=== PATIENT | female | born 1955 | race Caucasian/White ===

== ENCOUNTER 2016-12-19 08:57 | Emergency (ER) | payer BC ==
[2016-12-19 09:06] VITALS: BP 140/98
--- NOTE | 2016-12-19 09:22 | UC ---
Allergic Reaction HPI - HPI Summary HPI Summary: allergic reaction x 1 day facial swelling and itchy face , swollen lips and swelling eyelids no wheezing , no sob , no throat swelling not sure what caused the reaction, - History of Current Complaint Chief Complaint: UCAllergicReaction Stated Complaint: ALLERGIC REACTION Time Seen by Provider: 12/19/16 09:00 Hx Obtained From: Patient Onset/Duration: Gradual Onset, Lasting Days - 1, Still Present Severity Initially: Moderate Severity Currently: Moderate Location: Discrete @ - face , lips Character: Swelling - face, Hives - face Alleviating Factor(s): Nothing Associated Signs And Symptoms: Positive: Rash - face. Negative: Abdominal Pain , Chest Pain, Cough Wheezing, Diaphoresis, Difficulty Breathing, Hoarseness, Lightheadedness, Nausea, Syncope, Throat Tightening, Vomiting - Allergies/Home Medications Allergies/Adverse Reactions: Allergies Allergy/AdvReac Type Severity Reaction Status Date / Time Bee Venom Allergy Anaphylatic Verified 12/19/16 08:59 Shock Home Medications: Home Medications Hydrochlorothiazide TAB* [Hydrodiuril TAB*] 1 tab DAILY 12/19/16 [History Confirmed 12/19/16] Propranolol TAB* [Inderal TAB*] 1 tab DAILY 12/19/16 [History Confirmed 12/19/16 ] Venlafaxine ER (NF) [Effexor ER (NF)] 1 tab DAILY 12/19/16 [History Confirmed ] busPIRone TAB* [Buspar TAB*] 5 mg PO BID 12/19/16 [History Confirmed 12/19/16] PMH/Surg Hx/FS Hx/Imm Hx Neurological History: Migraine Psychological History: Anxiety, Depression - Surgical History Surgical History: Yes Surgery Procedure, Year, and Place: Appendix - Family History Known Family History: Negative: Diabetes - Social History Alcohol Use: Rare Substance Use Type: None Smoking Status (MU): Never Smoked Tobacco Review of Systems Constitutional: Negative Skin: Rash Eyes: Negative ENT: Negative Respiratory: Negative Cardiovascular: Negative Gastrointestinal: Negative Genitourinary: Negative Neurovascular: Negative Musculoskeletal: Negative Psychological: Anxious All Other Systems Reviewed And Are Negative: Yes Physical Exam Triage Information Reviewed: Yes Appearance: Well-Appearing, No Pain Distress, Well-Nourished Vital Signs: Initial Vital Signs Temp 97.8 F 12/19/16 09:00 Pulse 53 12/19/16 09:00 Resp 20 12/19/16 09:00 BP 140/98 12/19/16 09:00 Pulse Ox 100 12/19/16 09:00 Vital Signs Reviewed: Yes Eye Exam: Normal Eyes: Positive: Conjunctiva Clear ENT: Positive: Hearing grossly normal, Pharynx normal, TMs normal, Other: - facial swelling, swelling of the eyelids erythrma of the facke. Negative: Nasal congestion, Nasal drainage Neck exam: Normal Neck: Positive: Supple, Nontender, No Lymphadenopathy Respiratory Exam: Normal Respiratory: Positive: Chest non-tender, Lungs clear, Normal breath sounds Cardiovascular: Positive: RRR, No Murmur, Pulses Normal Abdominal Exam: Normal Neurological Exam: Normal Neurological: Positive: Alert, Muscle Tone Normal Skin: Positive: rashes - macular rash face Allergic Reaction Course/Dx - Differential Dx/Diagnosis Provider Diagnoses: allergic reaction Discharge - Discharge Plan Condition: Stable Disposition: HOME Prescriptions: Methylprednisolone [Medrol Dosepak 4 MG*] 0 mg PO .SEE WHITNEY INSTRUCTION #1 packet Patient Education Materials: General Allergic Reaction (ED) Referrals: Simeon Cao MD [Primary Care Provider] - 1 Day
== END 2016-12-19 09:25 | disposition home or self-care (01) ==
LOC: UCCORT 08:57
DX: T78.40XA Allergy, unspecified, initial encounter (principal); X58.XXXA Exposure to other specified factors, initial encounter
CPT/HCPCS: 99212; G0463

== ENCOUNTER 2017-08-31 13:35 | Emergency (ER) | payer SELFPAY ==
[2017-08-31 14:34] VITALS: BP 137/80
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
== END 2017-08-31 16:05 | disposition home or self-care (01) ==
LOC: UCCORT 13:35
DX: S16.1XXA Strain of muscle, fascia and tendon at neck level, initial encounter (principal); S39.012A Strain of muscle, fascia and tendon of lower back, initial encounter; Y04.2XXA Assault by strike against or bumped into by another person, initial encounter; S51.852A Open bite of left forearm, initial encounter; Y04.1XXA Assault by human bite, initial encounter; Y92.9 Unspecified place or not applicable
CPT/HCPCS: 36415; 86703; 86706; 86803; 87340; 99212; G0463

== ENCOUNTER 2018-03-05 14:50 | Emergency (ER) | payer BC, OTHER ==
--- NOTE | 2018-03-05 15:09 | UC ---
UC General HPI - HPI Summary HPI Summary: 7-8 day hx sinus congestion cough and chest congestion. some wheezing. hx asthma. - History of Current Complaint Stated Complaint: FEVER CHILLS SINUS COUGH Time Seen by Provider: 03/05/18 15:03 Hx Obtained From: Patient Onset/Duration: Gradual Onset Timing: Constant - Allergy/Home Medications Allergies/Adverse Reactions: Allergies Allergy/AdvReac Type Severity Reaction Status Date / Time No Known Allergies Allergy Verified 03/05/18 15:08 PMH/Surg Hx/FS Hx/Imm Hx Cardiovascular History: Hypertension Respiratory History: Asthma Psychological History: Anxiety, Depression - Surgical History Surgical History: Yes Surgery Procedure, Year, and Place: Appendix - Family History Known Family History: Positive: None Negative: Diabetes - Social History Occupation: Employed Full-time Alcohol Use: Rare Substance Use Type: None Smoking Status (MU): Never Smoked Tobacco - Immunization History Most Recent Tetanus Shot: up to date per patient Vaccination Up to Date: Yes Immunizations Comment: patient states she has had all 3 Hepatitis Vaccine Review of Systems All Other Systems Reviewed And Are Negative: Yes Constitutional: Positive: Chills, Fatigue Skin: Positive: Negative Eyes: Positive: Negative ENT: Positive: Ear Ache, Sinus Congestion Respiratory: Positive: Shortness Of Breath, Cough Cardiovascular: Positive: Negative Gastrointestinal: Positive: Negative Genitourinary: Positive: Negative Motor: Positive: Negative Neurovascular: Positive: Negative Musculoskeletal: Positive: Negative Neurological: Positive: Negative Psychological: Positive: Negative Physical Exam Triage Information Reviewed: Yes Appearance: Well-Appearing Vital Signs Reviewed: Yes Eyes: Positive: Conjunctiva Clear ENT: Positive: Pharynx normal, Nasal congestion, TMs normal. Negative: Nasal drainage, Sinus tenderness Neck: Positive: Supple, Nontender, No Lymphadenopathy Respiratory: Positive: No respiratory distress, Decreased breath sounds, Other: - Congested bronchospastic cough Cardiovascular: Positive: RRR, No Murmur Abdomen Description: Positive: Nontender, No Organomegaly, Soft Bowel Sounds: Positive: Present Musculoskeletal: Positive: ROM Intact Neurological: Positive: Alert Psychological: Positive: Age Appropriate Behavior Skin Exam: Normal Course/Dx - Differential Dx - Multi-Symptom Provider Diagnoses: URI, Bronchitis, asthma flare Discharge - Sign-Out/Discharge Documenting (check all that apply): Patient Departure All imaging exams completed and their final reports reviewed: No Studies - Discharge Plan Condition: Stable Disposition: HOME Prescriptions: Azithromycin TAB* [Zithromax TAB (Z-WHITNEY) 250 mg #6 tabs] 2 tab PO .TODAY, THEN 1 DAILY #1 whitney predniSONE TAB* [Deltasone 20 MG TAB*] 40 mg PO DAILY 5 Days #10 tab Patient Education Materials: Asthma (ED), Upper Respiratory Infection (DC), Acute Bronchitis (ED) Forms: *Work Release Referrals: Simeon Cao MD [Primary Care Provider] - 7 Days - Billing Disposition and Condition Condition: STABLE Disposition: Home
[2018-03-05 15:10] VITALS: BP 141/80
== END 2018-03-05 15:26 | disposition home or self-care (01) ==
LOC: UCCORT 14:50
DX: J06.9 Acute upper respiratory infection, unspecified (principal); J40 Bronchitis, not specified as acute or chronic; J45.901 Unspecified asthma with (acute) exacerbation; I10 Essential (primary) hypertension
CPT/HCPCS: 99212; G0463

== ENCOUNTER 2019-02-09 16:02 | Emergency (ER) | payer BC, OTHER ==
[2019-02-09 16:21] VITALS: BP 129/77
--- NOTE | 2019-02-09 16:33 | UC ---
Respiratory Complaint HPI - HPI Summary HPI Summary: Pt presents with c/o worsening asthma like symptoms. Pt has hx of asthma and states that she is having frequent "flares" over the last two months. Pt states it is difficult to breath and that she is wheezing all the time. Pt is in NAD during PE - History of Current Complaint Chief Complaint: UCGeneralIllness Stated Complaint: WHEEZY/COUGH/HX OF ASTHMA Time Seen by Provider: 02/09/19 16:16 Hx Obtained From: Patient ?: No Onset/Duration: Gradual Onset, Lasting Days, Still Present Timing: Constant Severity Initially: Mild Severity Currently: Moderate Pain Intensity: 0 Character: Cough: Nonproductive Aggravating Factors: Allergens, Exertion, Deep Breaths, Recumbent Position Alleviating Factors: Nothing Associated Signs And Symptoms: Positive: Wheezing, Nasal Congestion - Risk Factors Pulmonary Embolism Risk Factors: Negative Cardiac Risk Factors: Negative Pseudomonas Risk Factors: Chronic Lung Disease Tuberculosis Risk Factors: Negative - Allergies/Home Medications Allergies/Adverse Reactions: Allergies Allergy/AdvReac Type Severity Reaction Status Date / Time No Known Allergies Allergy Verified 02/09/19 16:20 Home Medications: Home Medications Amphetamine MIXED SALT TAB* [Adderall TAB*] 1 tab PO DAILY 02/09/19 [History Confirmed 02/09/19] Dextromethorphan Polistirex [Delsym] 5 ml PO ONCE 02/09/19 [History Confirmed ] LevoCETirizine TAB (NF) [Xyzal TAB (NF)] 1 tab PO DAILY 02/09/19 [History Confirmed 02/09/19] Mometasone NASAL (NF) [Nasonex (NF)] 1 spray ALT NARE DAILY 02/09/19 [History Confirmed 02/09/19] PMH/Surg Hx/FS Hx/Imm Hx Previously Healthy: Yes Respiratory History: Asthma - Surgical History Surgical History: Yes Surgery Procedure, Year, and Place: appendectomy. wisdom teeth - Family History Known Family History: Positive: None Negative: Diabetes - Social History Occupation: Employed Part-time Lives: With Family Alcohol Use: None Substance Use Type: None Smoking Status (MU): Never Smoked Tobacco Type: Cigarettes Amount Used/How Often: age 16 Have You Smoked in the Last Year: No - Immunization History Most Recent Tetanus Shot: up to date per patient Vaccination Up to Date: Yes Immunizations Comment: patient states she has had all 3 Hepatitis Vaccine Review of Systems All Other Systems Reviewed And Are Negative: Yes Constitutional: Positive: Negative Skin: Positive: Negative Eyes: Positive: Negative ENT: Positive: Negative Respiratory: Positive: Shortness Of Breath, Cough, Other - wheezing Cardiovascular: Positive: Negative Gastrointestinal: Positive: Negative Genitourinary: Positive: Negative Motor: Positive: Negative Neurovascular: Positive: Negative Musculoskeletal: Positive: Negative Neurological: Positive: Negative Psychological: Positive: Negative Is Patient Immunocompromised?: No Physical Exam Triage Information Reviewed: Yes Appearance: Well-Appearing Vital Signs: Initial Vital Signs Temp 99.5 F 02/09/19 16:15 Pulse 90 02/09/19 16:15 Resp 20 02/09/19 16:15 BP 129/77 02/09/19 16:15 Pulse Ox 100 02/09/19 16:15 Vital Signs Reviewed: Yes Eye Exam: Normal ENT: Positive: Nasal congestion Dental Exam: Normal Neck exam: Normal Respiratory: Positive: Decreased breath sounds, Wheezing Cardiovascular Exam: Normal Abdominal Exam: Normal Musculoskeletal Exam: Normal Neurological Exam: Normal Psychological Exam: Normal Skin Exam: Normal Respiratory Course/Dx - Differential Dx/Diagnosis Differential Diagnosis/HQI/PQRI: Asthma, Exacerbation Of COPD Provider Diagnosis: Wheezing, Exacerbation of asthma Discharge ED - Sign-Out/Discharge Documenting (check all that apply): Patient Departure All imaging exams completed and their final reports reviewed: No Studies - Discharge Plan Condition: Stable Disposition: HOME Prescriptions: predniSONE TAB* [Deltasone 20 MG TAB*] 60 mg PO DAILY #12 tab Patient Education Materials: Reactive Airways Disease (ED), Wheezing (ED) Forms: *Work Release Referrals: Simeon Cao MD [Primary Care Provider] - As Soon As Possible - Billing Disposition and Condition Condition: STABLE Disposition: Home
== END 2019-02-09 16:41 | disposition home or self-care (01) ==
LOC: UCCORT 16:02
DX: J45.901 Unspecified asthma with (acute) exacerbation (principal); R06.2 Wheezing
CPT/HCPCS: 99212; G0463